=== PATIENT | female | born 1975 | race Caucasian/White ===

== ENCOUNTER 2016-05-21 20:13 | Emergency (ER) | payer BC ==
[2016-05-21 20:34] VITALS: BP 154/98; TEMP 99.4; O2SAT 100
--- NOTE | 2016-05-21 20:46 | ED.PDOC ---
History of Present Illness - General Chief Complaint: Neck Injury/Pain Stated Complaint: jaw pain and swelling Time Seen by Provider: 05/21/16 20:39 Source: RN notes reviewed Additional Information: C/O PAIN TO R JAW AND EAR. INITIALLY IN L EAR 2 DAYS AGO BUT TODAY STARTED IN THE RIGHT - History of Present Illness Initial Comments: INTERMITTANT Timing/Duration: other - 2 DAYS Improving Factors: nothing Worsening Factors: nothing Associated Symptoms: denies symptoms Allergies/Adverse Reactions: Allergies NO KNOWN ALLERGY Allergy (Verified 05/21/16 20:34) Home Medications: Ambulatory Orders Ambien 05/21/16 Clindamycin HCl 300 mg PO TID #30 cap 05/21/16 Synthroid 05/21/16 Tramadol HCl [Ultram] 50 mg PO Q6HR PRN #15 tab 05/21/16 Review of Systems - Review of Systems Constitutional: Denies: chills, fever EENTM: States: ear pain. Denies: blurred vision, nose congestion, throat pain Respiratory: Denies: cough, short of breath Cardiology: Denies: chest pain, edema Gastrointestinal/Abdominal: Denies: nausea, vomiting Past Medical History (General) - Patient Medical History Hx Thyroid Disease: Yes - Vaccination History Hx Influenza Vaccination: Yes - Social History Hx Tobacco Use: No Hx Alcohol Use: Yes - OCC - Female History Patient : No - Triage Comment ED Triage Comment: pain started last night to left jaw, then edema started to neck today, with pain to each side Family Medical History - Family History Mother Family History: Unknown Physical Exam - Physical Exam General Appearance: Alert, Comfortable, Obese Eye Exam: bilateral normal Ears, Nose, Throat: normal ENT inspection, other - OP NL, DENTITION LOOKS GOOD, IS NTTP. IS VERY TENDER R SUBMANDIBULAR AREA AND R PAROTID GLAND. Neck: supple, normal inspection Respiratory: lungs clear, normal breath sounds, no respiratory distress Cardiovascular/Chest: regular rate, rhythm, no murmur Gastrointestinal/Abdominal: non tender, soft, no organomegaly Back Exam: normal inspection, no CVA tenderness Extremity: normal range of motion Neurologic: alert, oriented x 3 Departure - Departure Clinical Impression: Parotiditis Time of Disposition: 20:51 Disposition: Discharge to Home or Self Care Condition: Excellent Departure Forms: ED Discharge - Pt. Copy, Patient Portal Self Enrollment Instructions: DI for Parotitis-Adult Prescriptions: Tramadol HCl [Ultram] 50 mg PO Q6HR PRN #15 tab PRN Reason: Pain Clindamycin HCl 300 mg PO TID #30 cap Home Medications: Ambulatory Orders Ambien 05/21/16 Clindamycin HCl 300 mg PO TID #30 cap 05/21/16 Synthroid 05/21/16 Tramadol HCl [Ultram] 50 mg PO Q6HR PRN #15 tab 05/21/16
[2016-05-21] MEDS ORDERED: traMADol HCL 50 MG (ER DISP) # 6 TABS PO ONE (20:58)
[2016-05-21] MEDS ORDERED: CLINDAMYCIN HCL CAP (ER DISP) 150 MG CAP PO ONE (20:58)
== END 2016-05-21 21:07 | disposition home or self-care (01) ==
LOC: ER 20:13
DX: K11.20 Sialoadenitis, unspecified (principal); E07.9 Disorder of thyroid, unspecified